=== PATIENT | female | born 1980 | race African-American/Black ===

== ENCOUNTER 2017-11-13 16:10 | Outpatient (CLI) | payer MEDICAID ==
[2017-11-16 01:40] LABS: Chlamydia by PCR Not Detected (NotDetected); GC by PCR Not Detected (NotDetected)
== END 2017-11-13 16:11 | disposition home or self-care (01) ==
LOC: MADLABBHPM 16:10
PROVIDERS: ATTEND Family Medicine
DX: Z01.419 Encounter for gynecological examination (general) (routine) without abnormal findings (principal)
CPT/HCPCS: 87480; 87491; 87510; 87591; 87624; 87660; 88142; G0123

== ENCOUNTER 2018-05-06 18:17 | Emergency (ER) | payer MEDICAID ==
[2018-05-06] MEDS ORDERED: Penicillin V Potassium 250 MG TAB ONE (18:51)
[2018-05-06] MEDS ORDERED: HYDROcodone/Acetaminophen 5/325 mg Tablet ONE (18:51)
== END 2018-05-06 18:59 | disposition home or self-care (01) ==
LOC: MADERS 18:17
DX: K04.7 Periapical abscess without sinus (principal); F17.210 Nicotine dependence, cigarettes, uncomplicated
CPT/HCPCS: 99282

== ENCOUNTER 2018-11-13 18:28 | Emergency (ER) | payer SELFPAY ==
[2018-11-13] MEDS ORDERED: HYDROcodone/Acetaminophen 5/325 mg Tablet ONE (19:09)
[2018-11-13] MEDS ORDERED: Penicillin V Potassium 250 MG TAB ONE ×2 (19:10)
== END 2018-11-13 19:17 | disposition home or self-care (01) ==
LOC: MADERS 18:28
DX: K08.89 Other specified disorders of teeth and supporting structures (principal); F17.210 Nicotine dependence, cigarettes, uncomplicated
CPT/HCPCS: 99282

== ENCOUNTER 2019-10-06 18:38 | Emergency (ER) | payer SELFPAY | END 2019-10-06 19:00 | disposition home or self-care (01) | LOC: MADERS 18:38 | DX: M54.5 Low back pain (principal); F17.210 Nicotine dependence, cigarettes, uncomplicated; Z71.6 Tobacco abuse counseling | CPT/HCPCS: 99406 ==

== ENCOUNTER 2020-08-26 15:34 | Emergency (ER) | payer OTHER ==
[2020-08-27 15:05] LABS: SARS-CoV-2 MS2 Positive; SARS-CoV-2 N Gene Negative; SARS-CoV-2 S Gene Negative; SARS-CoV-2 by NAA Not Detected (NotDetected); SARS-CoV-2 orf1ab Negative
== END 2020-08-26 17:55 | disposition home or self-care (01) ==
LOC: MADERS 15:34
DX: J20.9 Acute bronchitis, unspecified (principal); F17.210 Nicotine dependence, cigarettes, uncomplicated
CPT/HCPCS: 87635; 99283; U0003

== ENCOUNTER 2020-11-29 18:30 | Emergency (ER) | payer OTHER ==
[2020-11-29] MEDS ORDERED: Acetaminophen 500 MG TAB ONE (19:52)
[2020-11-29] MEDS ORDERED: Ibuprofen 800 MG TAB ONE (19:52)
--- NOTE | 2020-11-29 19:57 | RAD ---
Chest 2 views HISTORY: Cough. Fever. FINDINGS: Cardiac silhouette and pulmonary vasculature are unremarkable. Mediastinum is midline. No c onfluent airspace consolidation, pneumothorax, or pleural fluid. Mild curvature of the thoracic spine. Metallic clips over the gallbladder fossa. IMPRESSION : No acute abnormalities are demonstrated.
[2020-12-02 12:46] LABS: SARS-CoV-2 PCR by NAA DETECTED (NotDetected)
== END 2020-11-29 21:01 | disposition home or self-care (01) ==
LOC: MADERS 18:30
DX: U07.1 COVID-19 (principal); J06.9 Acute upper respiratory infection, unspecified; F17.210 Nicotine dependence, cigarettes, uncomplicated
CPT/HCPCS: 71046; 87081; 87430; 87635; 87804; U0003; U0005

== ENCOUNTER 2021-12-05 09:22 | Emergency (ER) | payer OTHER ==
[2021-12-05] MEDS ORDERED: Prochlorperazine 10 MG/2 ML VIAL ONE (10:14)
[2021-12-05] MEDS ORDERED: Lactated Ringer's 1,000 ML ONE (10:14)
[2021-12-05] MEDS ORDERED: diphenhydrAMINE 50 MG/ML VIAL ONE (10:14)
[2021-12-05 10:31] LABS: BHCG - Serum Negative (NEGATIVE); Pregs Control Background? CLEAR/WHITE (CLR/WHITE); Pregs Control Bar Appear? YES (CONTROL BAR)
[2021-12-05 10:32] LABS: Prothrombin Time 13.5 sec (12.0-14.7)
[2021-12-05 10:33] LABS: PTT 28.2 sec (22.9-36.1)
[2021-12-05 10:42] LABS: Magnesium 1.8 mg/dL (1.6-2.6)
[2021-12-05 10:42] LABS: ALT (SGPT) Less than 7 U/L (8-55); AST (SGOT) 13 U/L (5-34); Albumin 4.1 g/dL (3.5-5.0); Alkaline Phosphatase 62 U/L (40-110); Anion Gap 11 mmol/L (10-20); BUN (Urea Nitrogen) 10 mg/dL (7.0-18.7); Bilirubin, Total 0.3 mg/dL (0.2-1.2); Calc. Creatinine Clearance 0 mL/min (70-130); Calcium 9.4 mg/dL (7.8-10.44); Carbon Dioxide 25 mmol/L (22-29); Chloride 106 mmol/L (98-107); Globulin 3.2 g/dL (2.4-3.5); Potassium 3.4 mmol/L (3.5-5.1); Protein, Total 7.3 g/dL (6.0-8.3); Sodium 139 mmol/L (136-145)
[2021-12-05 10:44] LABS: Hemoglobin 9.4 g/dL (12.0-16.0); Mean Corpuscular HGB CONC 29.7 g/dL (32.0-36.0); Mean Corpuscular Hemoglobin 22.9 pg (27.0-31.0); Mean Corpuscular Volume 77.3 fL (78.0-98.0); Mean Platelet Volume 8.1 fL (7.4-10.4); Platelet Count 357 thou/uL (130-400); RBC Distribution Width 15.9 % (11.5-14.5); Red Blood Cell (RBC) Count 4.08 mill/uL (4.20-5.40); White Blood Cell (WBC) Count 9.1 thou/uL (4.8-10.8)
[2021-12-05 10:45] LABS: Band 5 % (5-11); Monocytes 7 % (0-10)
[2021-12-05 10:46] LABS: Eosinophils 2 % (0-10); Lymphocytes 26 % (21-51); Neutrophil 60 % (42-75)
[2021-12-05 10:47] LABS: Hypochromia SLIGHT = 6-15 cells (100X) (0-5/hpf)
[2021-12-05 10:48] LABS: Anisocytosis SLIGHT = 6-15 cells (100X) (0-5/hpf); MDiff Complete? YES; Platelet Morphology Comment Appears Adequate
[2021-12-05] MEDS ORDERED: Tetracaine 0.5% PF 4 ML BOT ONE (10:50)
[2021-12-05 11:07] LABS: Glucose 59 mg/dL (70-105)
[2021-12-05] MEDS ORDERED: Potassium Chloride 20 MEQ TAB ONE (11:23)
== END 2021-12-05 12:00 | disposition home or self-care (01) ==
LOC: MADERS 09:22
DX: G43.909 Migraine, unspecified, not intractable, without status migrainosus (principal); N92.0 Excessive and frequent menstruation with regular cycle; E16.2 Hypoglycemia, unspecified; E87.6 Hypokalemia; D50.9 Iron deficiency anemia, unspecified; F17.210 Nicotine dependence, cigarettes, uncomplicated
CPT/HCPCS: 36415; 36416; 70450; 71045; 80053; 83735; 84443; 84484; 84703; 85025; 85610; 85730; 93005; 94760; 96374; 96375; J0780; J1200; J7120

== ENCOUNTER 2022-08-30 12:58 | Emergency (ER) | payer SELFPAY ==
[2022-08-30] MEDS ORDERED: Acetaminophen 500 MG TAB ONE (13:15)
[2022-08-30] MEDS ORDERED: Dexamethasone 4 MG TAB ONE (13:33)
[2022-08-30 14:21] LABS: SARS-CoV-2 NAA Rapid Test DETECTED (NotDetected)
== END 2022-08-30 14:47 | disposition home or self-care (01) ==
LOC: MADERS 12:58
DX: U07.1 COVID-19 (principal); F17.210 Nicotine dependence, cigarettes, uncomplicated
CPT/HCPCS: 87081; 87430; 99283; J8540

== ENCOUNTER 2022-12-01 19:57 | Emergency (ER) | payer BC, SELFPAY ==
[~2022-12-01 19:57] MED LIST: Iopamidol 370 76% 100 ML VIAL ONE; Sodium Chloride 0.9% 1,000 ML BAG ONE
[2022-12-01 21:09] LABS: Bilirubin Negative (Negative); Blood, Urine Small (Negative); Clarity Clear (Clear); Glucose, Urine (Dipstick) Negative (Negative); Ketone, Urine Negative (Negative); Leukocyte Small (Negative); Nitrite Negative (Negative); Protein, Urine (Dipstick) Negative (Neg-Trace); Urobilinogen 0.2 mg/dL (Less than 2)
[2022-12-01 21:11] LABS: Pregnancy Test - Urine (BHCG) Negative (Negative); Pregu Control Background? CLEAR/WHITE (CLR/WHITE); Pregu Control Bar Appear? YES (CONTROL BAR); Specific Gravity 1.013 (1.002-1.036)
[2022-12-01 21:21] LABS: Bacteria/HPF Rare-Few HPF (None Seen); Transitional Epithelial 0-3 HPF (None Seen); WBC/HPF 21-50 HPF (0-3)
[2022-12-01 21:28] LABS: ALT (SGPT) 9 U/L (8-55); AST (SGOT) 15 U/L (5-34); Albumin 4.3 g/dL (3.5-5.0); Alkaline Phosphatase 64 U/L (40-110); Anion Gap 13 mmol/L (10-20); BUN (Urea Nitrogen) 8 mg/dL (7.0-18.7); Bilirubin, Total 0.4 mg/dL (0.2-1.2); Calc. Creatinine Clearance 0 mL/min (70-130); Calcium 9.7 mg/dL (7.8-10.44); Carbon Dioxide 23 mmol/L (22-29); Chloride 105 mmol/L (98-107); Estimated GFR 89; Globulin 3.7 g/dL (2.4-3.5); Glucose 114 mg/dL (70-105); Lipase 14 U/L (8-78); Potassium 3.3 mmol/L (3.5-5.1); Sodium 138 mmol/L (136-145)
[2022-12-01 21:38] LABS: Band 1 % (5-11); Elliptocytes SLIGHT = 2-5 cells (100X) (0-1/hpf); Helmet Cells SLIGHT = 2-5 cells (100X) (0-1/hpf); Hemoglobin 8.8 g/dL (12.0-16.0); Lymphocytes 26 % (21-51); MDiff Complete? YES; Mean Corpuscular Hemoglobin 22.9 pg (27.0-31.0); Mean Corpuscular Volume 73.8 fl (78.0-98.0); Mean Platelet Volume 8.7 fL (7.4-10.4); Microcytosis MODERATE=15-30 cells (100X) (0-5/hpf); Monocytes 4 % (0-10); Neutrophil 69 % (42-75); Platelet Count 482 10x3/uL (130-400); RBC Distribution Width 16.9 % (11.5-14.5); Red Blood Cell (RBC) Count 3.85 mill/uL (4.20-5.40); Target Cells SLIGHT = 2-5 cells (100X) (0-1/hpf); White Blood Cell (WBC) Count 14.1 10x3/uL (4.8-10.8)
[2022-12-01] MEDS ORDERED: Ketorolac Tromethamine 30 MG/ML VIAL ONE (21:58)
== END 2022-12-01 22:49 | disposition home or self-care (01) ==
LOC: MADERS 19:57
DX: N83.202 Unspecified ovarian cyst, left side (principal); D25.9 Leiomyoma of uterus, unspecified; D50.9 Iron deficiency anemia, unspecified; D72.829 Elevated white blood cell count, unspecified; F17.210 Nicotine dependence, cigarettes, uncomplicated
CPT/HCPCS: 74177; 80053; 81003; 81015; 81025; 83690; 85025; 87086; 96374; J1885; J7050; Q9967

== ENCOUNTER 2023-08-11 23:34 | Emergency (ER) | payer BC ==
[2023-08-12 00:01] LABS: Bilirubin Small (Negative); Blood, Urine Negative (Negative); Glucose, Urine (Dipstick) Negative (Negative); Ketone, Urine Trace mg/dL (Negative); Leukocyte Negative (Negative); Nitrite Negative (Negative); Protein, Urine (Dipstick) Trace mg/dL (Neg-Trace)
[2023-08-12 00:04] LABS: CAUTI Indications for Culture Acute Hematuria; Clarity Hazy (Clear); Specific Gravity, Urine 1.026 (1.002-1.036); WBC/HPF 0-3 HPF (0-3)
[2023-08-12 00:05] LABS: Mucous/LPF 2+ LPF (<2+); Urine Culture Reflex No No
[2023-08-12] MEDS ORDERED: Lidocaine 4% Patch ONE (00:56)
[2023-08-12] MEDS ORDERED: predniSONE 20 MG TAB ONE (00:56)
[2023-08-12] MEDS ORDERED: Albuterol 200 PUFF (6.7GM INHALER) ONE (00:56)
== END 2023-08-12 01:04 | disposition home or self-care (01) ==
LOC: MADERS 23:34
DX: J44.89 Other specified chronic obstructive pulmonary disease (principal); M94.0 Chondrocostal junction syndrome [Tietze]; F17.210 Nicotine dependence, cigarettes, uncomplicated
CPT/HCPCS: 71046; 81001; J7512

== ENCOUNTER 2023-10-04 10:43 | Emergency (ER) | payer BC ==
[2023-10-04 12:05] LABS: ALT (SGPT) 9 U/L (8-55); AST (SGOT) 11 U/L (5-34); Albumin 4.6 g/dL (3.5-5.0); Alkaline Phosphatase 63 U/L (40-110); Anion Gap 13 mmol/L (10-20); BUN (Urea Nitrogen) 14 mg/dL (7.0-18.7); Bilirubin, Total 0.7 mg/dL (0.2-1.2); Calc. Creatinine Clearance 0 mL/min (70-130); Calcium 9.5 mg/dL (7.8-10.44); Carbon Dioxide 23 mmol/L (22-29); Chloride 104 mmol/L (98-107); Estimated GFR 73; Globulin 3.1 g/dL (2.4-3.5); Glucose 95 mg/dL (70-105); Potassium 4.3 mmol/L (3.5-5.1); Protein, Total 7.7 g/dL (6.0-8.3); Sodium 136 mmol/L (136-145)
[2023-10-04 12:07] LABS: CRP (Inflammatory) Less than 0.50 mg/dL (= or < 0.5); Lipase 17 U/L (8-78)
[2023-10-04] MEDS ORDERED: Sodium Chloride 0.9% 1,000 ML ONE (12:13)
[2023-10-04 12:15] LABS: Anisocytosis SLIGHT = 6-15 cells (100X) (0-5/hpf); Band 2 % (5-11); Eosinophils 3 % (0-10); Hematocrit 43.9 % (36.0-47.0); Hemoglobin 13.1 g/dL (12.0-16.0); Hypochromia SLIGHT = 6-15 cells (100X) (0-5/hpf); Lymphocytes 40 % (21-51); MDiff Complete? YES; Mean Corpuscular Hemoglobin 25.6 pg (27.0-31.0); Mean Corpuscular Volume 85.5 fl (78.0-98.0); Mean Platelet Volume 10.1 fL (7.4-10.4); Monocytes 7 % (0-10); Neutrophil 48 % (42-75); Platelet Adequacy Comment Appears Adequate; Platelet Count 217 10x3/uL (130-400); RBC Distribution Width 15.1 % (11.5-14.5); Red Blood Cell (RBC) Count 5.13 mill/uL (4.20-5.40); White Blood Cell (WBC) Count 6.9 10x3/uL (4.8-10.8)
[2023-10-04 13:04] LABS: SARS-CoV-2 NAA Rapid Test DETECTED (NotDetected)
== END 2023-10-04 14:20 | disposition home or self-care (01) ==
LOC: MADERS 10:43
DX: U07.1 COVID-19 (principal); F17.210 Nicotine dependence, cigarettes, uncomplicated
CPT/HCPCS: 36415; 71045; 80053; 83605; 83690; 83735; 83880; 85025; 85379; 86140; 87040; 87804; 96360; J7050; U0002

== ENCOUNTER 2025-02-28 06:49 | Emergency (ER) | payer BC ==
[2025-02-28] MEDS ORDERED: Ondansetron ODT 4 MG TAB ONE (07:12)
== END 2025-02-28 08:00 | disposition home or self-care (01) ==
LOC: MADERS 06:49
DX: K52.9 Noninfective gastroenteritis and colitis, unspecified (principal); F17.210 Nicotine dependence, cigarettes, uncomplicated
CPT/HCPCS: 99283; Q0162

== ENCOUNTER 2025-07-31 18:29 | Emergency (ER) | payer BC | END 2025-07-31 19:08 | disposition home or self-care (01) | LOC: MADERS 18:29 | DX: R09.A2 Foreign body sensation, throat (principal); K04.7 Periapical abscess without sinus; K02.9 Dental caries, unspecified; F17.210 Nicotine dependence, cigarettes, uncomplicated | CPT/HCPCS: 99282 ==